=== PATIENT | male | born 1955 | race African-American/Black ===

== ENCOUNTER 2022-10-28 08:59 | Emergency (ER) | payer MEDICARE ==
[~2022-10-28] VITALS: Ht 177.8 cm; Wt 87.0 kg
[2022-10-28 09:05] VITALS: BP 107/83
[2022-10-28] MEDS ORDERED: HEPARIN 100 UNITS/1 ML VIAL IVF ONE (11:15)
== END 2022-10-28 12:18 | disposition home or self-care (01) ==
LOC: ER 08:59
DX: Z93.1 Gastrostomy status (principal); Z13.9 Encounter for screening, unspecified
CPT/HCPCS: 99281; J1642

== ENCOUNTER 2022-10-30 13:28 | Emergency (ER) | payer MEDICARE, MEDICAID ==
[~2022-10-30] VITALS: Ht 177.8 cm; Wt 87.0 kg
[2022-10-30 17:21] VITALS: BP 146/77
== END 2022-10-30 17:23 | disposition home or self-care (01) ==
LOC: ER 13:28
DX: Z48.02 Encounter for removal of sutures (principal); Z85.9 Personal history of malignant neoplasm, unspecified; Z43.1 Encounter for attention to gastrostomy
CPT/HCPCS: 99281

== ENCOUNTER 2023-03-12 10:52 | Inpatient (IN) | payer MEDICARE, MEDICAID ==
[~2023-03-12] VITALS: Ht 177.8 cm; Wt 84.8 kg
[2023-03-12 12:26] LABS: BASOPHILS % 0.5 % (0.0-2.0); EOSINOPHILS % 7.1 % (0.0-5.0); HEMATOCRIT. 40.3 % (42.0-52.0); HEMOGLOBIN. 13.7 g/dL (14.0-18.0); LYMPHOCYTES % 22.3 % (20.0-50.0); MEAN CORPUSCULAR VOLUME 100.3 fL (80.0-94.0); MEAN PLATELET VOLUME 7.3 fl (7.4-10.4); MONOCYTES % 13.6 % (2.0-8.0); NEUTROPHILS % 56.5 % (40.0-76.0); PLATELET 118 x1000/uL (130-400); RED BLOOD CELL COUNT 4.02 mill/uL (4.7-6.1)
[2023-03-12 12:35] LABS: CHLORIDE 107 mEq/L (98-107)
[2023-03-12 12:53] LABS: PROTHROMBIN TIME 10.6 sec (9.6-11.0)
[2023-03-12] MEDS ORDERED: MAGNESIUM/ALUMINUM HYDROXIDE/SIMETHICONE 30ML UDC PO PRN (15:00)
[2023-03-12] MEDS ORDERED: CLONIDINE 0.1MG TABLET PO PRN (15:00)
[2023-03-12] MEDS ORDERED: DOCUSATE SODIUM 100MG CAPSULE PO PRN (15:00)
[2023-03-12] MEDS ORDERED: IPRATROPIUM/ALBUTEROL 0.5-3(2.5)MG/3ML NEB NEB PRN (15:00)
[2023-03-12] MEDS ORDERED: ACETAMINOPHEN 325MG TABLET PO PRN ×2 (15:00)
[2023-03-12] MEDS ORDERED: GUAIFENESIN 200MG/10ML SUGAR FREE UDC PO PRN (15:00)
[2023-03-12] MEDS ORDERED: ONDANSETRON HCL 4MG/2ML INJ IV PRN (15:00)
[2023-03-13] MEDS: FAMOTIDINE 20MG TABLET PO SCH ×2 (00:40→21:24)
[2023-03-13 08:00] VITALS: BP 104/63
[2023-03-13 08:15] VITALS: BP 104/63
[2023-03-13 09:34] LABS: BASOPHILS % 0.5 % (0.0-2.0); EOSINOPHILS % 5.7 % (0.0-5.0); HEMATOCRIT. 42.9 % (42.0-52.0); HEMOGLOBIN. 14.7 g/dL (14.0-18.0); LYMPHOCYTES % 15.7 % (20.0-50.0); MEAN CORPUSCULAR HEMOGLOBIN 34.1 pg (28.0-32.0); MEAN CORPUSCULAR VOLUME 99.6 fL (80.0-94.0); MEAN PLATELET VOLUME 7.6 fl (7.4-10.4); MONOCYTES % 13.8 % (2.0-8.0); NEUTROPHILS % 64.3 % (40.0-76.0); PLATELET 121 x1000/uL (130-400); RED BLOOD CELL COUNT 4.31 mill/uL (4.7-6.1); RED CELL DISTRIBUTION WIDTH 13.8 % (11.6-14.6)
[2023-03-13 09:37] LABS: CHLORIDE 103 mEq/L (98-107)
[2023-03-13 09:53] LABS: HDL CHOLESTEROL 72 mg/dL (40-59); T4 FREE 0.65 ng/dL (0.76-1.46)
[2023-03-13 10:26] LABS: VITAMIN B12 SERUM 636 pg/mL (211-911)
[2023-03-13 10:28] LABS: FOLIC ACID (FOLATE) SERUM > 20.00 ng/mL (>5.38)
[2023-03-13] MEDS ORDERED: PNEUMOCOCCAL VACCINE IM SCH (11:00)
[2023-03-13 12:00] VITALS: BP 100/62
[2023-03-13 16:00] VITALS: BP 107/64
[2023-03-13 20:00] VITALS: BP 112/60
[2023-03-14] VITALS (18 sets, daily range): BP systolic 94–142; BP diastolic 61–74
[2023-03-14] MEDS ORDERED: LIDOCAINE HCL 1% 10 MG/ML 10ML VIAL ONE (09:34)
[2023-03-14] MEDS ORDERED: CEFAZOLIN 1000MG PREMIX 50 ML IV NR (10:00)
[2023-03-14] MEDS ORDERED: SODIUM CHLORIDE 0.9% 10ML VIAL ONE (10:08)
[2023-03-14] MEDS ORDERED: FENTANYL CITRATE/PF 50MCG/ML 2ML VIAL ONE (10:15)
[2023-03-14] MEDS ORDERED: FENTANYL CITRATE/PF 50MCG/ML 2ML VIAL IV ONE (10:45)
[2023-03-14] MEDS ORDERED: CEFA500C2 PO (11:47)
[2023-03-15 17:56] LABS: LDL CHOLESTEROL 111 mg/dL (5-100)
== END 2023-03-14 14:01 | disposition home or self-care (01) | DRG 949 ==
LOC: ER 13:14 → MICUSO 22:00 → UNDOADMIN 23:00 → MICUSO 23:00 → 6EST 03-13 07:55
PROVIDERS: ADMIT Internal Medicine; ATTEND Internal Medicine
PROC: 0JPT0WZ Removal of Totally Implantable Vascular Access Device from Trunk Subcutaneous Tissue and Fascia, Open Approach (ICD-10-PCS; principal; 2023-03-14)
PROC: 02PY33Z Removal of Infusion Device from Great Vessel, Percutaneous Approach (ICD-10-PCS; 2023-03-14)
DX: Z45.2 Encounter for adjustment and management of vascular access device (principal); E46 Unspecified protein-calorie malnutrition; F17.210 Nicotine dependence, cigarettes, uncomplicated; D53.9 Nutritional anemia, unspecified; D69.6 Thrombocytopenia, unspecified; Z68.26 Body mass index [BMI] 26.0-26.9, adult; Z59.00 Homelessness unspecified; Z85.819 Personal history of malignant neoplasm of unspecified site of lip, oral cavity, and pharynx; Z92.3 Personal history of irradiation; Z92.21 Personal history of antineoplastic chemotherapy
CPT/HCPCS: 36415; 36590; 71045; 77001; 80053; 80061; 82607; 82746; 83036; 84439; 84443; 85025; 87426; 90732; 99285; C1893; C9803; J0690; J3010; J3490

== ENCOUNTER 2023-04-06 11:54 | Emergency (ER) | payer MEDICARE, MEDICAID ==
[~2023-04-06] VITALS: Ht 177.8 cm; Wt 89.0 kg
[2023-04-06 12:00] VITALS: O2SAT 100
[2023-04-06 12:45] LABS: HEMATOCRIT. 40.2 % (42.0-52.0); HEMOGLOBIN. 13.6 g/dL (14.0-18.0); MEAN CORPUSCULAR VOLUME 100.6 fL (80.0-94.0); MEAN PLATELET VOLUME 7.5 fl (7.4-10.4); PLATELET 139 x1000/uL (130-400); RED CELL DISTRIBUTION WIDTH 13.8 % (11.6-14.6)
[2023-04-06 12:52] LABS: CHLORIDE 102 mEq/L (98-107)
[2023-04-06] MEDS ORDERED: ONDANSETRON 4MG ODT PO ONE (13:15)
[2023-04-06 14:12] LABS: PLATELET ESTIMATE NORMAL
[2023-04-06] MEDS ORDERED: FAMO-135 PO (14:30)
[2023-04-06 14:49] VITALS: BP 134/78; PULSE 82; RESP 18; TEMP 98.5
== END 2023-04-06 14:50 | disposition home or self-care (01) ==
LOC: ER 11:54
DX: R07.89 Other chest pain (principal); R06.02 Shortness of breath
CPT/HCPCS: 36415; 71045; 80053; 84484; 85025; 99284; Q0162